=== PATIENT | female | born 1970 | race Hispanic/Latino ===

== ENCOUNTER 2024-07-19 04:56 | Emergency (ER) | payer BC ==
[~2024-07-19] VITALS: Ht 157.5 cm; Wt 81.6 kg
[~2024-07-19 04:56] MED LIST: CEFDINIR300 MG PO; DICYCLOMINE HCL20 MG PO; DIPHENHYDRAMINE25 MG PO; ONDANSETRON ODT4 MG PO; PYRIDIUM200 MG PO
[2024-07-19 05:01] VITALS: PULSE 89; RESP 18; TEMP 99.6
[2024-07-19 05:34] VITALS: BP 136/84; PULSE 89; RESP 18; TEMP 99.6; O2SAT 100
== END 2024-07-19 05:34 | disposition home or self-care (01) ==
LOC: FSED 05:28
DX: H10.212 Acute toxic conjunctivitis, left eye (principal); E03.9 Hypothyroidism, unspecified; K76.9 Liver disease, unspecified
CPT/HCPCS: 99282